=== PATIENT | male | born 1980 | race African-American/Black ===

== ENCOUNTER 2022-12-07 19:10 | Emergency (ER) | payer OTHER ==
[~2022-12-07] VITALS: Ht 180.3 cm; Wt 83.9 kg
[2022-12-07 19:22] VITALS: BP_SYST 134; PULSE 80; RESP 18; TEMP 98.3; O2SAT 99
== END 2022-12-07 19:57 ==
LOC: SED 19:10
DX: Z02.89 Encounter for other administrative examinations (principal); F17.210 Nicotine dependence, cigarettes, uncomplicated; Z79.899 Other long term (current) drug therapy
CPT/HCPCS: 99283